=== PATIENT | female | born 1960 | race Caucasian/White ===

== ENCOUNTER → 2016-09-25 | Outpatient (CLI) | payer OTHER | LOC: BMCIMAGING 13:18 | PROVIDERS: ATTEND Podiatrist Foot & Ankle Surgery | DX: M77.31 Calcaneal spur, right foot (principal); S92.512D Displaced fracture of proximal phalanx of left lesser toe(s), subsequent encounter for fracture with routine healing ==

== ENCOUNTER → 2017-04-01 | Outpatient (CLI) | payer OTHER | LOC: FIMAGING 12:01 | PROVIDERS: ATTEND Internal Medicine | DX: Z12.31 Encounter for screening mammogram for malignant neoplasm of breast (principal) | CPT/HCPCS: G0202 ==

== ENCOUNTER → 2017-05-13 | Outpatient (CLI) | payer OTHER | LOC: BMCIMAGING 14:56 | PROVIDERS: ATTEND Orthopaedic Surgery | DX: M25.562 Pain in left knee (principal) ==

== ENCOUNTER → 2017-08-24 | Outpatient (CLI) | payer OTHER | LOC: FIMAGING 12:36 | PROVIDERS: ATTEND Orthopaedic Surgery | DX: Z01.818 Encounter for other preprocedural examination (principal); M17.12 Unilateral primary osteoarthritis, left knee; M25.462 Effusion, left knee ==

== ENCOUNTER → 2017-09-01 | Outpatient (CLI) | payer OTHER | LOC: BMCIMAGING 14:14 | PROVIDERS: ATTEND Internal Medicine | DX: Z13.820 Encounter for screening for osteoporosis (principal); M85.89 Other specified disorders of bone density and structure, multiple sites; Z78.0 Asymptomatic menopausal state ==

== ENCOUNTER 2017-09-14 07:15 | Observation (INO) | payer OTHER ==
--- NOTE | 2017-09-14 06:35 | PDHPUP ---
History & Physical Update H&P update statement: This history and physical update is based on an assessment of the patient which was completed after admission or registration (within 24 hours), but prior to the surgery/procedure. H&P update: no change in patient's condition since H&P completed
--- NOTE | 2017-09-14 06:36 | PDIAF ---
- Diagnosis Diagnosis: left knee djd Code Status: Full Code - Medication Management Discharge Medications: Medications to Continue on Transfer Herbals/Supplements -Info Only 1 ea PO DAILY 10/27/14 [Last Taken Unknown] Amoxicillin Trihydrate [Amoxicillin] 2,000 mg PO AD PRN 08/24/17 [Last Taken Unknown] Ibuprofen [Motrin (*)] 200 mg PO DAILY PRN 08/24/17 [Last Taken Unknown] Loratadine [Claritin 10 mg] 10 mg PO DAILY 08/24/17 [Last Taken Unknown] Multivitamins [Multivitamin (*)] 1 each PO DAILY 08/24/17 [Last Taken Unknown] [place]-3 Fatty Acids [Fish Oil 1000 mg (*)] 1,000 mg PO DAILY 08/24/17 [Last Taken Unknown] Discharge Medications: Refer to the Discharge Home Medication list for PRN reason. - Orders Services needed: Physical Therapy Isolation Type: None Diet Recommendation: no restrictions on diet Activity/Weight Bearing Restrictions: wbat. rom as fer. keep dressing intact. yonatan hose x 2 weeks. f/u at two weeks, seek attn for increasing pain, redness , swelling discharge - Follow Up Care Current Providers and Referrals: Leonela Joyner MD [Primary Care Provider] -
[~2017-09-14 07:15] MED LIST: BUPI/epINEPH/KETOROLAC/morphINE IU ONE; NS IV ONE; ROPIVACAINE 0.2% 80 MG, EPINEPHrine 0.2 MG, KETOROLAC TROMETHAMINE 30 MG, morphINE 10 M... IU ONE; TRANEXAMIC ACID IV ONE
[2017-09-14] MEDS ORDERED: CALCIUM CHLORIDE 1 GM/10 ML INJ ONE (07:46)
[2017-09-14] MEDS ORDERED: THROMBIN (BOVINE) 5,000 UNIT VIAL TP ONE (07:46)
[2017-09-14] MEDS ORDERED: ceFAZolin 1 GM/5 ML SYR ONE (07:46)
[2017-09-14] MEDS ORDERED: ceFAZolin 2 GM/SWFI 2 GM/20 ML SYR IVP ONE (08:31)
[2017-09-14] MEDS ORDERED: FAMOTIDINE 20 MG TAB PO ONE (08:31)
[2017-09-14] MEDS ORDERED: ACETAMINOPHEN 325 MG TAB PO ONE (08:31)
[2017-09-14] MEDS ORDERED: LR 1,000 ML IV ONE (08:32)
[2017-09-14] MEDS ORDERED: LIDOCAINE 1% 2 ML INJ ID PRN (08:32)
[2017-09-14] MEDS ORDERED: MIDAZOLAM 2 MG/2 ML VIAL IVP ONE (09:16)
--- NOTE | 2017-09-14 09:16 | PDANEPAE ---
ANE History of Present Illness left knee oa ANE Past Medical History - Cardiovascular History Hx Hypertension: No Hx Arrhythmias: No Hx Chest Pain: No Hx Coronary Artery / Peripheral Vascular Disease: No Hx CHF / Valvular Disease: No Hx Palpitations: No Cardiovascular History Comment: MURMUR, NO CONCERN, NL ECHO - Pulmonary History Hx COPD: No Hx Asthma/Reactive Airway Disease: No Hx Recent Upper Respiratory Infection: No Hx Oxygen in Use at Home: No Hx Sleep Apnea: No Sleep Apnea Screening Result - Last Documented: Negative Pulmonary History Comment: DENIES SOB W STAIRS - Neurologic History Hx Cerebrovascular Accident: No Hx Seizures: No Hx Dementia: No - Endocrine History Hx Diabetes: No - Renal History Hx Renal Disorders: No - Liver History Hx Hepatic Disorders: No - Neurological & Psychiatric Hx Hx Neurological and Psychiatric Disorders: No - Cancer History Hx Cancer: No - Congenital Disorder History Hx Congenital Disorders: No - GI History Hx Gastrointestinal Disorders: No - Other Health History Other Health History: OA R KNEE, L KNEE - Chronic Pain History Chronic Pain: Yes (ROBYN KNEES) - Surgical History Prior Surgeries: X3 SCOPE R KNEE., X1 L KNEE. OVARIAN CYST REM ANE Review of Systems Review of Systems: - Exercise capacity METS (RN): 5 METS ANE Patient History - Allergies Allergies/Adverse Reactions: metronidazole Allergy (Mild, Verified 08/31/17 14:18) Vomiting - Home Medications Home Medications: RX: Herbals/Supplements -Info Only 1 ea PO DAILY 10/27/14 [Last Taken 1 Week Ago ~09/07/17] Amoxicillin Trihydrate [Amoxicillin] 2,000 mg PO AD PRN 08/24/17 [Last Taken Unknown] Ibuprofen [Motrin (*)] 200 mg PO DAILY PRN 08/24/17 [Last Taken 1 Week Ago ~] Loratadine [Claritin 10 mg] 10 mg PO DAILY 08/24/17 [Last Taken 1 Week Ago ~] Multivitamins [Multivitamin (*)] 1 each PO DAILY 08/24/17 [Last Taken 1 Week Ago ~09/07/17] [place]-3 Fatty Acids [Fish Oil 1000 mg (*)] 1,000 mg PO DAILY 08/24/17 [Last Taken 1 Week Ago ~09/07/17] - NPO status NPO Since - Liquids (Date): 09/14/17 NPO Since - Liquids (Time): 05:00 NPO Since - Solids (Date): 09/13/17 NPO Since - Solids (Time): 19:30 - Smoking Hx Smoking Status: Never smoked - Family Anes Hx Family Hx Anesthesia Complications: NONE ANE Labs/Vital Signs - Vital Signs Blood Pressure: 129/87 Heart Rate: 68 Respiratory Rate: 18 O2 Sat (%): 96 Height: 170.18 cm Weight: 64.41 kg ANE Physical Exam - Airway Neck exam: FROM Mallampati Score: Class 1 Mouth exam: normal dental/mouth exam - Pulmonary Pulmonary: no respiratory distress - Cardiovascular Cardiovascular: regular rate and rhythym - ASA Status ASA Status: I ANE Anesthesia Plan Anesthesia Plan: GA w LMA, spinal Regional Anesthesia: adductor canal FNB Total IV Anesthesia: Yes
[2017-09-14] MEDS ORDERED: PROPOFOL/EMULSION 500 MG/50 ML BOTTLE IV ONE (09:18)
[2017-09-14] MEDS ORDERED: TRANEXAMIC ACID 3,000 MG/50 ML BAG IRR ONE (09:43)
[2017-09-14] MEDS ORDERED: DEXAMETHASONE 4 MG/ML VIAL ONE (10:21)
[2017-09-14] MEDS ORDERED: ONDANSETRON 4 MG/2 ML VIAL ONE (10:21)
[2017-09-14] MEDS ORDERED: fentaNYL 100 MCG/2 ML INJ ONE (10:22)
[2017-09-14] MEDS ORDERED: POLYETHYLENE GLYCOL 3350 17 GM PKT PO PRN (10:37)
[2017-09-14] MEDS ORDERED: TEMAZEPAM 15 MG CAP PO PRN (10:37)
[2017-09-14] MEDS ORDERED: ONDANSETRON DISINTEGRATING 4 MG TAB PO PRN (10:37)
[2017-09-14] MEDS ORDERED: traMADol 50 MG TAB PO PRN (10:37)
[2017-09-14] MEDS ORDERED: LACTULOSE 20 GM/30 ML UDCUP PO PRN (10:37)
[2017-09-14] MEDS ORDERED: oxyCODONE IR 5 MG TAB PO PRN (10:37)
[2017-09-14] MEDS ORDERED: diphenhydrAMINE 25 MG CAP PO PRN (10:37)
[2017-09-14] MEDS ORDERED: MAGNESIUM HYDROXIDE 30 ML UDCUP PO PRN (10:37)
[2017-09-14] MEDS ORDERED: ONDANSETRON 4 MG/2 ML VIAL IVP PRN ×2 (10:37→11:00)
[2017-09-14] MEDS ORDERED: DIPHENOXYLATE/ATROPINE LOMOTIL 1 TAB PO PRN (10:37)
[2017-09-14] MEDS ORDERED: PROMETHAZINE HCL 25 MG SUPPR PR PRN (10:37)
[2017-09-14] MEDS ORDERED: BISACODYL 10 MG SUPP PR PRN (10:37)
[2017-09-14] MEDS ORDERED: METOCLOPRAMIDE 10 MG/2 ML VIAL IVP PRN (10:37)
[2017-09-14] MEDS ORDERED: DIAZEPAM 5 MG TAB PO PRN (10:37)
[2017-09-14] MEDS ORDERED: PROMETHAZINE HCL 25 MG/ML INJ IVP PRN ×2 (10:37→11:00)
[2017-09-14] MEDS ORDERED: CYCLOBENZAPRINE 10 MG TAB PO PRN (10:37)
[2017-09-14] MEDS ORDERED: fentaNYL 100 MCG/2 ML INJ IVP PRN (11:00)
[2017-09-14] MEDS ORDERED: NALOXONE HCL 0.4 MG/ML INJ IVP PRN (11:00)
[2017-09-14] MEDS ORDERED: HYDROmorphONE/DILAUDID 2 MG/ML INJ IVP PRN (11:00)
[2017-09-14] MEDS ORDERED: LR 1,000 ML IV SCH (11:00)
[2017-09-14] MEDS ORDERED: HYDROCODONE/APAP 5/325 TAB PO PRN (11:00)
[2017-09-14] MEDS ORDERED: ROPIVACAINE HCL 150 MG/30 ML INJ ONE (11:01)
--- NOTE | 2017-09-14 12:06 | POSTANESTH ---
Post Anesthetic Evaluation Cardiovascular Status: Normal, Stable Respiratory Status: Normal, Stable Level of Consciousness/Mental Status: Can Participate in Eval Pain Control: Adequate, Prn Tx Ordered Nausea/Vomiting Control: Adequate, Prn Tx Ordered Complications Possibly Related to Anesthesia: None Noted
[2017-09-14] MEDS: ACETAMINOPHEN 325 MG TAB PO SCH ×3 (12:45→23:33)
[2017-09-14] MEDS: TRANEXAMIC ACID 650 MG TAB PO SCH ×2 (12:46→17:55)
[2017-09-14] MEDS ORDERED: ceFAZolin 2 GM/DEXTROSE 100 ML IV SCH (14:00)
--- NOTE | 2017-09-14 16:20 | ASMTCMCOM ---
CM Note CM Note Notes: Chart reviewed, CM order in chart. 57 year old female s/p TKA. Therapies ordered and pending. Needs TBD at this time. CM to follow. Date Signed: 09/14/2017 04:19 PM Electronically Signed By:Sarah Lazar RN
[2017-09-14] MEDS: ceFAZolin 2 GM/SWFI 2 GM/20 ML SYR IVP SCH (17:57)
[2017-09-14] MEDS: ASPIRIN 325 MG TAB PO SCH (20:26)
[2017-09-14] MEDS: SENNOSIDES/DOCUSATE SODIUM TAB PO SCH (20:26)
[2017-09-14] MEDS: FAMOTIDINE 20 MG TAB PO SCH (20:26)
[2017-09-15] MEDS: ceFAZolin 2 GM/SWFI 2 GM/20 ML SYR IVP SCH (03:34)
[2017-09-15] MEDS: TRANEXAMIC ACID 650 MG TAB PO SCH (03:34)
[2017-09-15] MEDS: ACETAMINOPHEN 325 MG TAB PO SCH ×2 (07:27→10:17)
--- NOTE | 2017-09-15 07:28 | PDIAF ---
- Diagnosis Diagnosis: left knee djd Code Status: Full Code - Medication Management Discharge Medications: Medications to Continue on Transfer Herbals/Supplements -Info Only 1 ea PO DAILY 10/27/14 [Last Taken 1 Week Ago ~] Amoxicillin Trihydrate [Amoxil] 2,000 mg PO AD PRN 08/24/17 [Last Taken Unknown] Ibuprofen [Motrin (*)] 200 mg PO DAILY PRN 08/24/17 [Last Taken 1 Week Ago ~] Loratadine [Claritin 10 mg] 10 mg PO DAILY 08/24/17 [Last Taken 1 Week Ago ~] Multivitamins [Multivitamin (*)] 1 each PO DAILY 08/24/17 [Last Taken 1 Week Ago ~09/07/17] [place]-3 Fatty Acids [Fish Oil 1000 mg (*)] 1,000 mg PO DAILY 08/24/17 [Last Taken 1 Week Ago ~09/07/17] oxyCODONE IR [Oxycodone Ir (*)] 5 - 10 mg PO Q3HRS PRN #45 tab 09/15/17 [Last Taken Unknown] Discharge Medications: Refer to the Discharge Home Medication list for PRN reason. - Orders Services needed: Physical Therapy Isolation Type: None Diet Recommendation: no restrictions on diet Diet Texture: Regular Texture Diet Activity/Weight Bearing Restrictions: wbat. rom as fer. keep dressing intact. yonatan hose x 2 weeks. f/u at two weeks, seek attn for increasing pain, redness , swelling discharge Additional Instructions: wbat rom as fer keep dressing intact yonatan hose x 2 weeks f/u at two weeks, seek attn for increasing pain, redness, swelling discharge - Follow Up Care Current Providers and Referrals: Leonela Joyner MD [Primary Care Provider] - Jacoby Carrera MD [Medical Doctor] -
--- NOTE | 2017-09-15 07:30 | SOAPPROG ---
SOAP Progress Note Assessment/Plan: Assessment: s/p tka Plan:d/c home stable no acute issues dvt precautions given 09/15/17 07:28 Subjective: no acute issues no cp or sob fer po Objective: Vital Signs Temp Pulse Resp BP Pulse Ox 36.6 C 51 L 16 106/67 95 09/15/17 04:00 09/15/17 04:00 09/15/17 04:00 09/15/17 04:00 09/15/17 04:00 Laboratory Results 09/15/17 04:35 09/14/17 09/15/17 09/16/17 05:59 05:59 05:59 Intake Total 1260 Output Total 1000 Balance 260 dressing intact intact pf,df,ehl toes warm and pink neg homans racquel xrays stable anatomic alignment\ ICD10 Worksheet Patient Problems: Problems Problem Status Onset Osteoarthritis of knee Acute
[2017-09-15] MEDS: FAMOTIDINE 20 MG TAB PO SCH (08:19)
[2017-09-15] MEDS: SENNOSIDES/DOCUSATE SODIUM TAB PO SCH (08:19)
[2017-09-15] MEDS: ASPIRIN 325 MG TAB PO SCH (08:19)
[2017-09-15] MEDS ORDERED: CETIRIZINE 10 MG TAB PO SCH (09:00)
[2017-09-15 09:15] VITALS: BP 116/82
--- NOTE | 2017-09-15 16:10 | ASMTCMCOM ---
CM Note CM Note Notes: PT rec HHC, pt agreeable. Pt insurance [facility] and late in the day [facility] reports they are not contracted. Approx [phone] several referrals to [facility] blasted as [employer] is a challenging insurance for [facility]; Unknown if one will be located by close of business. CM to follow to ensure an agency is located. Date Signed: 09/15/2017 04:09 PM Electronically Signed By:NKECHI Haynes
--- NOTE | 2017-09-15 16:54 | ASMTCMCOM ---
CM Note CM Note Notes: Elis with [facility] calls to report they can accept pt, she will run insurance and let CM know if there is an issue. Date Signed: 09/15/2017 04:53 PM Electronically Signed By:NKECHI Haynes
--- NOTE | 2017-09-16 15:49 | ASDISCHSUM ---
Discharge Information Plan Status:Home with Home Health Medically Cleared to Leave: Discharge Date:09/15/2017 02:45 PM CM D/C Disposition:Home Health Service ADT D/C Disposition:Home Health Service Projected Discharge Date:09/15/2017 11:00 AM Transportation at D/C: Discharge Delay Reason: Follow-Up Date:09/15/2017 11:00 AM Discharge Slot: Final Diagnosis: Placement Information Referral Type:*Home Health Care Services Referral ID:[id number] Provider Name:[facility] Address 1:[address] Phone Number: Address 2: Fax Number: City:[place] Selection Factors: State:[place] Patient Contact Information Contact Name:IVA Relationship: Address:[address] Work Phone: City:[place] [facility] [facility] Phone: State/Zip Code:[place] [address] Email: Financial Information Financial Class:HMO and PPO Plans Primary Plan Desc:MELO PPO POS HMO Primary Plan Number:[id number] Secondary Plan Desc: Secondary Plan Number: Assessment Information [facility] CM Progress Note CM Note CM Note Notes: Chart reviewed, CM order in chart. 57 year old female s/p TKA. Therapies ordered and pending. Needs TBD at this time. CM to follow. Date Signed: 09/14/2017 04:19 PM Electronically Signed By:Sarah Lazar RN [facility] CM Progress Note CM Note CM Note Notes: PT rec HHC, pt agreeable. Pt insurance not contracted with [facility] and late in the day [facility] reports they are not contracted. Approx [phone] several referrals to [facility] blasted as [employer] is a challenging insurance for [facility]; Unknown if one will be located by close of business. CM to follow to ensure an agency is located. Date Signed: 09/15/2017 04:09 PM Electronically Signed By:NKECHI Haynes [facility] Progress Note CM Note CM Note Notes: Elis with [facility] calls to report they can accept pt, she will run insurance and let CM know if there is an issue. Date Signed: 09/15/2017 04:53 PM Electronically Signed By:NKECHI Haynes Intervention Information
--- NOTE | 2017-09-17 07:13 | GDS ---
[f rep st] DISCHARGE SUMMARY ADMITTING DIAGNOSIS: Left knee degenerative joint disease. DISCHARGE DIAGNOSES: Left knee degenerative joint disease. PROCEDURE: Left total knee arthroplasty. HISTORY OF PRESENT ILLNESS: The patient is a 57-year-old woman with end-stage arthritis to her left knee. Clinical and radiographic features are consistent with this. She presents for elective total knee replacement. HOSPITAL COURSE: The patient was admitted to the hospital floor after uncomplicated total knee arthr oplasty. She tolerated the procedure well. There were no postoperative complications at the time of discharge. She is tolerating oral diet. Pain is well controlled on oral medicines. She is voiding without difficulty. Dressing is clean, dry, and intact. DISCHARGE ACTIVITY: Weightbearing as tolerated. Range of motion as tolerated. She is to keep the d ressing in place unless this becomes saturated, and then changed daily. She may shower without the b andage or with the occlusive bandage. No soaking or immersion. FOLLOWUP: Follow up in 2 weeks. DISCHARGE MEDICATIONS: Oxycodone 1-2 every 6 hours and aspirin 325 mg p.o. daily for 6 weeks. /[id number]/MODL
--- NOTE | 2017-09-17 07:23 | GOP ---
[f rep st] OPERATIVE REPORT DATE OF OPERATION: 09/14/2017 SURGEON: Jacoby Carrera MD TECHNICAL SERVICES REPRESENTATIVE: Emmanuel Truong, PARALEGAL ASSISTANT, [facility]. PREOPERATIVE DIAGNOSIS: Left knee degenerative joint disease. POSTOPERATIVE DIAGNOSIS: Left knee degenerative joint disease. September 16, 2017 PROCEDURE PERFORMED: Left total knee arthroplasty, MAKOplasty. FINDINGS: SPECIMENS: To pathology, the bony cuts. DESCRIPTION OF PROCEDURE: Patient was identified in the preanesthesia area. The left knee clearly d emarcated as operative site with indelible marker. She was given 2 g of Ancef intravenously en route to the operative suite. In the OR spinal anesthetic was placed followed by sedation. She was posit ioned in the supine position. Attention was turned to the left knee and lower extremity which was st erilely prepped and draped in usual fashion. A tourniquet was applied to the upper thigh. The limb was exsanguinated with an Esmarch bandage after appropriate time-out, and the tourniquet inflated to 275 mmHg. A standard anterior midline incision was made. Thick subcutaneous flaps were elevated fol lowed by medial parapatellar arthrotomy. There was tricompartmental changes consistent with arthriti s. Incision was made to proceed with total knee replacement. Two pins were placed through the anter ior incision across the medial femur and the femoral check point was placed. The femoral reference a rray was affixed for the MAKOplasty protocol. Separate percutaneous incision was made over the mid s hin and 2 pins were placed and the tibial reference array was likewise placed. A tibial check point was placed. All bony landmarks were entered into the computer in standard fashion. The marginal ost eophytes were excised. The knee was balanced through the flexion-extension arc with adjustment of th e components and soft tissue releases. Using the MAKOplasty robot, resections were made for a size 3 femur, size 4 tibia. A trial reduction over a 4 x 9 mm polyethylene spacer revealed appropriate sta bility through the flexion-extension arc with no varus or valgus instability within the flexion-exten lorenzo arc as well. The trial components were withdrawn. The tibial component was placed in a press-f it technique as was the femur. A 4 x 9 mm polyethylene spacer final implant was placed, impacted, co nfirmed to be fully seated. Attention was then turned to the patella which was everted cut in a free hand cutting technique. Drill holes were made for a size 32 asymmetric patella. This was pressed in to position. The wound was copiously irrigated and the margins were instilled with a joint cocktail of ropivacaine, morphine, Toradol, and epinephrine. The medial parapatellar arthrotomy closed using #1 Ethibond suture. The knee instilled with platelet-rich plasma. Subcutaneous tissue closed using Quill and the skin were stapled. Sterile dressing was applied. The patient was awakened, extubated, taken to recovery room in good stable condition. HISTORY OF PRESENT ILLNESS: The patient is a 57-year-old woman with end-stage arthritis across her l eft knee. Clinical and radiographic features are consistent with this. She has failed all attempts at conservative management. I have therefore recommended total knee replacement. I have outlined th e surgical procedure, risks, benefits, and alternatives. She wished to proceed. Written consent was signed and placed in patient's chart. TOTAL TOURNIQUET TIME: 50 minutes. COMPLICATIONS: None. IMPLANTS: A Goldy Triathlon PS femoral component size 3, asymmetric patella A32, tibial bearing in sert 4 x 9 mm and a triathlon titanium tibial component, size 4. /[id number]/MODL
== END 2017-09-15 14:45 | disposition home health service (06) ==
LOC: F3N 08:20 → INTOOBSV 08:20 → F3N 13:00
PROVIDERS: ADMIT Orthopaedic Surgery; ATTEND Orthopaedic Surgery
PROC: 3E0U0GB Introduction of Recombinant Bone Morphogenetic Protein into Joints, Open Approach (ICD-10-PCS; principal; 2017-09-14 10:00)
PROC: 0SRD0JZ Replacement of Left Knee Joint with Synthetic Substitute, Open Approach (ICD-10-PCS; principal; 2017-09-14 10:00)
PROC: 8E0YXBZ Computer Assisted Procedure of Lower Extremity (ICD-10-PCS; principal; 2017-09-14 10:00)
DX: M17.12 Unilateral primary osteoarthritis, left knee (principal)
CPT/HCPCS: 0232T; 20985; 27447; 97116-GP; 97161-GP; 97165-GO; 97530-GP; G0378; J0171; J0690; J1100; J1885; J2250; J2270; J2405; J2704; J2795; J3010

== ENCOUNTER → 2017-10-21 | Outpatient (CLI) | payer OTHER | LOC: BMCLAB 14:01 | PROVIDERS: ATTEND Physician Assistant | DX: Z47.1 Aftercare following joint replacement surgery (principal); Z96.652 Presence of left artificial knee joint; M25.462 Effusion, left knee ==

== ENCOUNTER → 2017-12-08 | Outpatient (CLI) | payer OTHER | LOC: BMCIMAGING 10:25 | PROVIDERS: ATTEND Orthopaedic Surgery | DX: Z47.89 Encounter for other orthopedic aftercare (principal); Z96.652 Presence of left artificial knee joint ==

== ENCOUNTER → 2018-03-08 | Outpatient (CLI) | payer OTHER | LOC: BMCIMAGING 13:06 | PROVIDERS: ATTEND Orthopaedic Surgery | DX: Z47.1 Aftercare following joint replacement surgery (principal); Z96.652 Presence of left artificial knee joint; R93.7 Abnormal findings on diagnostic imaging of other parts of musculoskeletal system ==

== ENCOUNTER → 2018-05-05 | Outpatient (CLI) | payer OTHER | LOC: FIMAGING 11:33 | PROVIDERS: ATTEND Internal Medicine | DX: Z12.31 Encounter for screening mammogram for malignant neoplasm of breast (principal) ==

== ENCOUNTER → 2018-06-16 | Outpatient (CLI) | payer OTHER | LOC: BMCIMAGING 13:05 | PROVIDERS: ATTEND Physician Assistant | DX: M19.042 Primary osteoarthritis, left hand (principal) ==

== ENCOUNTER → 2018-09-08 | Outpatient (CLI) | payer OTHER | LOC: BMCIMAGING 13:14 | PROVIDERS: ATTEND Orthopaedic Surgery | DX: Z47.1 Aftercare following joint replacement surgery (principal); Z96.652 Presence of left artificial knee joint ==